=== PATIENT | female | born 1945 | race Caucasian/White ===

== ENCOUNTER 2017-05-20 09:29 | Outpatient (CLI) | payer OTHER ==
[~2017-05-20 09:29] MED LIST: EPANED1 MG/1 ML PO; GABAPENTIN400 MG PO; GLUMETZA1000 MG PO; NABUMETONE500 MG PO; NAMENDA5 MG PO; PERCOCET 5-3251 EACH PO; PERCOCET 5/3251 TAB PO; PNEU16DI2; ZOLOFT20 MG/ML PO; [UNRECOGNIZED DRUG - OTHER] PO; [UNRECOGNIZED DRUG - OTHER] PO
== END 2017-05-20 14:11 | disposition home or self-care (01) ==
LOC: LAB 09:29
DX: D64.89 Other specified anemias (principal); D68.8 Other specified coagulation defects; E88.89 Other specified metabolic disorders; N39.0 Urinary tract infection, site not specified; Z22.322 Carrier or suspected carrier of Methicillin resistant Staphylococcus aureus; E83.42 Hypomagnesemia; E13.69 Other specified diabetes mellitus with other specified complication; E55.9 Vitamin D deficiency, unspecified; D53.8 Other specified nutritional anemias; M06.4 Inflammatory polyarthropathy

== ENCOUNTER 2017-05-20 09:36 | Outpatient (CLI) | payer OTHER | END 2017-05-20 14:09 | disposition home or self-care (01) | LOC: EKG 09:36 | DX: I49.8 Other specified cardiac arrhythmias (principal) ==

== ENCOUNTER 2017-05-20 12:29 | Outpatient (CLI) | payer OTHER | END 2017-05-20 12:35 | disposition home or self-care (01) | LOC: RAD 12:29 | DX: Z96.653 Presence of artificial knee joint, bilateral (principal); Z76.89 Persons encountering health services in other specified circumstances ==

== ENCOUNTER 2017-05-23 11:12 | Outpatient (CLI) | payer OTHER | END 2017-05-23 11:18 | disposition home or self-care (01) | LOC: LAB 11:12 | DX: D64.89 Other specified anemias (principal); M06.4 Inflammatory polyarthropathy ==

== ENCOUNTER 2017-05-27 15:07 | Inpatient (IN) | payer OTHER ==
[~2017-05-27] VITALS: Ht 144.8 cm; Wt 72.1 kg
== END 2017-05-29 10:39 | disposition home or self-care (01) | DRG 483 ==
LOC: O/R 05-28 05:51 → SURG 05-28 05:51 → O/R 05-28 15:06 → SURG 05-28 15:15
PROVIDERS: Orthopaedic Surgery
PROC: 0LS40ZZ Reposition Left Upper Arm Tendon, Open Approach (ICD-10-PCS; 2017-05-28)
PROC: 0PBB0ZZ Excision of Left Clavicle, Open Approach (ICD-10-PCS; 2017-05-28)
PROC: 0RCK0ZZ Extirpation of Matter from Left Shoulder Joint, Open Approach (ICD-10-PCS; 2017-05-28)
PROC: 0RRK00Z Replacement of Left Shoulder Joint with Reverse Ball and Socket Synthetic Substitute, Open Approach (ICD-10-PCS; principal; 2017-05-28 16:00)
DX: M19.012 Primary osteoarthritis, left shoulder (principal); M75.82 Other shoulder lesions, left shoulder; M75.122 Complete rotator cuff tear or rupture of left shoulder, not specified as traumatic; M85.612 Other cyst of bone, left shoulder; I10 Essential (primary) hypertension

== ENCOUNTER 2017-06-06 11:11 | Outpatient (CLI) | payer OTHER | END 2017-06-06 11:19 | disposition home or self-care (01) | LOC: LAB 11:11 | DX: D64.9 Anemia, unspecified (principal); M06.4 Inflammatory polyarthropathy ==

== ENCOUNTER 2017-11-28 08:56 | Outpatient (CLI) | payer OTHER | END 2017-11-28 16:56 | disposition home or self-care (01) | LOC: RAD 08:56 | DX: M79.662 Pain in left lower leg (principal); Z96.653 Presence of artificial knee joint, bilateral; M76.62 Achilles tendinitis, left leg ==

== ENCOUNTER 2017-12-03 10:37 | Outpatient (CLI) | payer OTHER | END 2017-12-03 11:01 | disposition home or self-care (01) | LOC: NUCLEAR 10:37 | DX: M81.0 Age-related osteoporosis without current pathological fracture (principal); E55.9 Vitamin D deficiency, unspecified ==

== ENCOUNTER 2017-12-19 08:00 | Inpatient (IN) | payer OTHER ==
[~2017-12-19] VITALS: Ht 144.8 cm; Wt 72.1 kg
[2017-12-19] MEDS ORDERED: SYNTHROID88 MCG PO (16:52)
[2017-12-26] MEDS ORDERED: COLACE100 MG PO (09:14)
[2017-12-26] MEDS ORDERED: PERCOCET 5-3251 EACH PO (09:14)
== END 2017-12-27 13:58 | DRG 455 ==
LOC: PED 12-26 05:00 → O/R 12-26 05:00 → SURH 12-26 07:00 → PED 12-26 13:31
PROVIDERS: Orthopaedic Surgery Orthopaedic Surgery of the Spine
PROC: 0RG2071 Fusion of 2 or more Cervical Vertebral Joints with Autologous Tissue Substitute, Posterior Approach, Posterior Column, Open Approach (ICD-10-PCS; 2017-12-26)
PROC: 0RT30ZZ Resection of Cervical Vertebral Disc, Open Approach (ICD-10-PCS; 2017-12-26)
PROC: 07DS3ZZ Extraction of Vertebral Bone Marrow, Percutaneous Approach (ICD-10-PCS; 2017-12-26)
PROC: 0RG20A0 Fusion of 2 or more Cervical Vertebral Joints with Interbody Fusion Device, Anterior Approach, Anterior Column, Open Approach (ICD-10-PCS; principal; 2017-12-26 07:00)
DX: M47.22 Other spondylosis with radiculopathy, cervical region (principal); M50.11 Cervical disc disorder with radiculopathy, high cervical region; I10 Essential (primary) hypertension; E03.8 Other specified hypothyroidism; E11.9 Type 2 diabetes mellitus without complications

== ENCOUNTER 2017-12-19 08:48 | Outpatient (CLI) | payer OTHER ==
[2017-12-19] MEDS ORDERED: SYNTHROID88 MCG PO (16:52)
== END 2017-12-19 08:58 | disposition home or self-care (01) ==
LOC: LAB 08:48 → RAD 08:48 → LAB 08:58
DX: D64.89 Other specified anemias (principal); D68.8 Other specified coagulation defects; E03.8 Other specified hypothyroidism; R07.1 Chest pain on breathing

== ENCOUNTER 2018-01-27 15:38 | Emergency (ER) | payer OTHER ==
[~2018-01-27] VITALS: Ht 144.8 cm; Wt 72.1 kg
[~2018-01-27 15:38] MED LIST changes: +COLACE100 MG PO; +SYNTHROID88 MCG PO
== END 2018-01-27 18:34 | disposition home or self-care (01) ==
LOC: ER 15:38
DX: M54.2 Cervicalgia (principal); M25.511 Pain in right shoulder; M25.512 Pain in left shoulder